=== PATIENT | female | born 1985 | race Caucasian/White ===

== ENCOUNTER 2016-11-22 21:34 | Emergency (ER) | payer OTHER ==
[~2016-11-22] VITALS: Ht 160 cm; Wt 90.0 kg
[2016-11-22] MEDS ORDERED: HYDROGEN PEROXIDE 473 ML SOLUTION TP ONE (23:00)
[2016-11-22] MEDS ORDERED: HYDROGEN PEROXIDE 118 ML SOLUTION TP ONE (23:15)
[2016-11-22 23:22] VITALS: BP 131/81
== END 2016-11-22 23:25 | disposition home or self-care (01) ==
LOC: EMS 21:39
DX: H61.23 Impacted cerumen, bilateral (principal)
CPT/HCPCS: 69209; 99282

== ENCOUNTER 2017-03-18 21:36 | Emergency (ER) | payer OTHER ==
[~2017-03-18] VITALS: Ht 160 cm; Wt 100.0 kg
[2017-03-18 21:40] VITALS: BP 143/94
== END 2017-03-18 23:17 | disposition left against medical advice (07) ==
LOC: EMS 21:37
DX: H92.02 Otalgia, left ear (principal); Z53.21 Procedure and treatment not carried out due to patient leaving prior to being seen by health care provider

== ENCOUNTER 2017-03-20 12:00 | Emergency (ER) | payer MEDICAID, OTHER ==
[~2017-03-20] VITALS: Ht 160 cm; Wt 94.1 kg
[2017-03-20] MEDS ORDERED: CARBAMIDE PEROXIDE 6.5% 15 ML OTIC SOLUTION AS ONE (14:00)
[2017-03-20 14:45] VITALS: BP 138/74
== END 2017-03-20 16:14 | disposition home or self-care (01) ==
LOC: EMS 12:01
DX: H61.22 Impacted cerumen, left ear (principal); R03.0 Elevated blood-pressure reading, without diagnosis of hypertension
CPT/HCPCS: 69209; 99282